=== PATIENT | male | born 1955 | race African-American/Black ===

== ENCOUNTER → 2017-09-21 | Outpatient (CLI) | payer OTHER ==
[2017-09-21] MEDS: IOHEXOL 300 MG/ML 100ML VIAL. IV (12:53)
[2017-09-21 12:54] LABS: ISTAT CREATININE 0.8 mg/dL (0.7-1.3)
== END | disposition home or self-care (01) ==
LOC: KCIC CT 12:08
DX: C34.91 Malignant neoplasm of unspecified part of right bronchus or lung (principal); J43.9 Emphysema, unspecified; I25.10 Atherosclerotic heart disease of native coronary artery without angina pectoris; R91.8 Other nonspecific abnormal finding of lung field; Z85.118 Personal history of other malignant neoplasm of bronchus and lung
CPT/HCPCS: 71260; 82565; Q9967

== ENCOUNTER → 2018-12-12 | Day surgery (SDC) | payer OTHER ==
[~2018-12-12] MED LIST: HYDROmorphone 2 MG/ML VIAL IV PRN; IV RINGERS,LACTATED 1000ML 1,000 ML IV SCH; LIDOCAINE 1% PF 2 ML VIAL. ID PRN; LISI-130 PO; METF500T16 PO; MORPHINE SULFATE 2 MG/ML VIAL. IV PRN; OLME1TAB35 PO; ONDANSETRON PF 4 MG/2 ML VIAL. IV PRN; PROCHLORPERAZINE 10 MG/2 ML VIAL. IV PRN; PROPOFOL 40 ML IV ONE; SITA100T PO; SITA1TAB11 PO; fentaNYL PF VIAL 100 MCG/2 ML VIAL IV PRN
[2018-12-12 10:45] VITALS: BP 150/98
--- NOTE | 2018-12-13 15:05 | PATHOLOGY ---
[facility] Accession Number: [id number] . 01 Material submitted: . PART A: colon - TRANSVERSE COLON POLYP. Modifiers: transverse PART B: colon - SIGMOID POLYP. Modifiers: sigmoid PART C: rectum - RECTAL POLYP . 01 Clinical history: . Pre-OP DX: Screening Post-OP DX: Polyps . 02 Diagnosis: A. Colon biopsies, transverse colon polyps: - Tubular adenomas (2). . B. Colon biopsies, sigmoid polyps: - Hyperplastic polyps. . C. Colorectal biopsies, rectal polyp: - Hyperplastic polyp. . (JP:mml; 12/13/2018) [facility]/12/13/2018 . 02 Comment: There is no high grade dysplasia or evidence of malignancy. . (JPM:mml; 12/13/2018) . 02 Electronically signed: . Trevin Wilson MD, Pathologist NPI- [id number] . 01 Gross description: . A. Received in formalin labeled "Carlos Daigle, transverse colon polyp," is a 0.8 x 0.6 x 0.6 cm polypoid piece of garibay soft tissue. The margin is inked and the tissue is sectioned perpendicular to the margin and submitted in its entirely in cassette A1 and A2. Additionally received in the same container is a single segment of garibay soft tissue measuring 0.4 cm in greatest dimension. The specimen is submitted entirely in cassette A3. . B. Received in formalin labeled "Pilo, Carlos, sigmoid polyp," are 7 segments of garibay soft tissue measuring 1.0 x 0.6 x 0.2 cm in aggregate dimensions and ranging from 0.2 to 0.5 cm in maximum dimension. The specimen is submitted entirely in cassette B1. . C. Received in formalin labeled "Pilo, Carlos, rectal polyp," are 2 segments of garibay soft tissue measuring 0.8 x 0.2 x 0.2 cm in aggregate dimensions and ranging from 0.6 to 0.2 cm in maximum dimension. The specimen is submitted entirely in cassette C1. (TSD; 12/12/2018) TOB/TOB . 02 Pathologist provided ICD-10: D12.3, D12.5, K62.1 . 02 CPT . 976847, 204142, 720598 Specimen Comment: A courtesy copy of this report has been sent to Specimen Comment: [phone], . Specimen Comment: Report sent to / DR TAYLOR Performed at: 01 [facility] [address] [place] [address] [address], [place] [id number] MD Lincoln Castano MD Phone: [phone] Performed at: [address] [facility] [address] [place], [place] [id number] MD Trevin Wilson MD Phone: [phone]
== END ==
LOC: SURG 08:52
PROVIDERS: ATTEND Internal Medicine Gastroenterology
DX: Z12.11 Encounter for screening for malignant neoplasm of colon (principal); D12.3 Benign neoplasm of transverse colon; K63.5 Polyp of colon; K62.1 Rectal polyp; K64.0 First degree hemorrhoids; J45.909 Unspecified asthma, uncomplicated; E11.9 Type 2 diabetes mellitus without complications; K44.9 Diaphragmatic hernia without obstruction or gangrene; Z88.0 Allergy status to penicillin; Z86.010 Personal history of colon polyps; Z85.118 Personal history of other malignant neoplasm of bronchus and lung; Z72.89 Other problems related to lifestyle; Z87.891 Personal history of nicotine dependence; Z79.84 Long term (current) use of oral hypoglycemic drugs
CPT/HCPCS: 45380; 45385; 88305; J2704

== ENCOUNTER 2019-04-04 00:28 | Emergency (ER) | payer OTHER ==
[~2019-04-04] VITALS: Ht 177.8 cm; Wt 98.0 kg
[~2019-04-04 00:28] MED LIST changes: -HYDROmorphone 2 MG/ML VIAL IV PRN; -IV RINGERS,LACTATED 1000ML 1,000 ML IV SCH; -LIDOCAINE 1% PF 2 ML VIAL. ID PRN; -MORPHINE SULFATE 2 MG/ML VIAL. IV PRN; -ONDANSETRON PF 4 MG/2 ML VIAL. IV PRN; -PROCHLORPERAZINE 10 MG/2 ML VIAL. IV PRN; -PROPOFOL 40 ML IV ONE; -fentaNYL PF VIAL 100 MCG/2 ML VIAL IV PRN
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
[2019-04-04 01:49] VITALS: BP 132/86
[2019-04-04] MEDS ORDERED: ORPH100T PO (02:01)
[2019-04-04] MEDS ORDERED: HYDR-3164 PO (02:01)
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
[2019-04-04] MEDS ORDERED: HYDROcodone/APAP 7.5/325MG 1 TAB TABLET PO ONE (02:30)
== END 2019-04-04 02:15 | disposition home or self-care (01) ==
LOC: ER 00:28
DX: S16.1XXA Strain of muscle, fascia and tendon at neck level, initial encounter (principal); S43.492A Other sprain of left shoulder joint, initial encounter; S20.212A Contusion of left front wall of thorax, initial encounter; Z88.0 Allergy status to penicillin; V43.52XA Car driver injured in collision with other type car in traffic accident, initial encounter; Y93.89 Activity, other specified; Y92.410 Unspecified street and highway as the place of occurrence of the external cause; Y99.8 Other external cause status
CPT/HCPCS: 71101; 72040; 73030; 99284

== ENCOUNTER → 2019-05-20 | Outpatient (CLI) | payer OTHER ==
[~2019-05-20] MED LIST changes: +HYDR-3164 PO; +ORPH100T PO
--- NOTE | 2019-05-21 11:16 | KCIC ---
CT CHEST WO CONTRAST History: History of malignant neoplasm of the upper lobe. Technique: Noncontrast CT of the chest was performed. Coronal and sagittal reconstructions were performed. Exposure: One or more of the following individualized dose reduction techniques were utilized for this examination: 1. Automated exposure control 2. Adjustment of the mA and/or kV according to patient size 3. Use of iterative reconstruction technique. Comparison: November 21, 2017 Findings: Chest: Postoperative changes left mediastinum. Postoperative changes left upper lobectomy. Right lower lobe peripheral reticulation, unchanged. Left lower lobe linear atelectasis or scarring. 2 mm right anterior pleural-based upper lobe nodule (series 2 image #24). 4 mm right minor fissure-based nodule (image #30), unchanged. New bilobed right lower lobe nodule measures 4 x 4 x 7 mm (image #36 series 2 and image 29 series 4). Upper abdomen: Bilateral adenomatous adrenal gland thickening. Bones: No pathologic osseous lesions. Right-sided rib deformity, likely postoperative. Impression: 1. New bilobed right lower lobe pulmonary nodule, indeterminate given history and concerning for malignancy. Recommend short-term interval follow-up. PET/CT may have limited utility given size. Biopsy could also be considered. 2. Bilateral adenomatous adrenal gland hypertrophy, unchanged. Electronically signed by: Franko Miguel DO (05/21/2019 11:13 AM) [facility]
== END | disposition home or self-care (01) ==
LOC: KCIC CT 08:11
PROVIDERS: ATTEND Family Medicine
DX: C34.10 Malignant neoplasm of upper lobe, unspecified bronchus or lung (principal); E27.8 Other specified disorders of adrenal gland; R91.8 Other nonspecific abnormal finding of lung field
CPT/HCPCS: 71250

== ENCOUNTER → 2020-06-08 | Outpatient (CLI) | payer OTHER | LOC: LAB 08:45 | PROVIDERS: ATTEND Internal Medicine Gastroenterology | DX: Z01.812 Encounter for preprocedural laboratory examination (principal); Z86.010 Personal history of colon polyps; Z20.828 Contact with and (suspected) exposure to other viral communicable diseases | CPT/HCPCS: U0003 ==

== ENCOUNTER → 2020-06-10 | Day surgery (SDC) | payer OTHER ==
[~2020-06-10] MED LIST changes: +IV RINGERS,LACTATED 1000ML 1,000 ML IV SCH; +LIDOCAINE 2% PF 5 ML VIAL. ONE; +PROPOFOL 10 MG/ML (20ML) VIAL. IV ONE
--- NOTE | 2020-06-10 12:25 | PREOP HP ---
DATE OF SERVICE: 06/10/2020 REQUESTING PHYSICIAN: Nitin Hylton MD PRIMARY CARE PHYSICIAN: Nitin Hylton MD REASON FOR PROCEDURE: History of colon polyps. HISTORY OF PRESENT ILLNESS: This is a 64-year-old gentleman who presents for colonoscopy. He has a history of colon polyps with his last colonoscopy in 2014. The risks and benefits of the procedure including bleeding, perforation, non-diagnosis and sedation were explained and he has agreed to proceed. MEDICATIONS: Propofol per anesthesia. ALLERGIES: No known drug allergies. MEDICATIONS: MAR reviewed. PAST MEDICAL HISTORY: Colon polyps. REVIEW OF SYSTEMS: A 13-point review of systems was done and is positive as per HPI and otherwise negative. PHYSICAL EXAMINATION: VITAL SIGNS: He is afebrile and his vital signs are stable. GENERAL: He is a well-developed, well-nourished gentleman, in no apparent distress. HEENT: Oropharynx is clear. CARDIOVASCULAR: S1, S2. LUNGS: Clear. ABDOMEN: Normoactive bowel sounds, soft, nontender, nondistended. EXTREMITIES: No edema. NEUROLOGIC: Awake, alert and oriented x 3. ASSESSMENT AND PLAN: History of polyps. The risks and benefits of the procedure including bleeding, perforation, non-diagnosis and sedation were explained and he has agreed to proceed. SHARMAINE ESCALANTE MD DR: ALEN/kevin JOB#: [id number] / [id number]
[2020-06-10 12:27] VITALS: BP 133/90
--- NOTE | 2020-06-15 09:30 | PATHOLOGY ---
[facility] Accession Number: [id number] . 01 Material submitted: . PART A: colon - DESCENDING COLON POLYP BIOPSY. Modifiers: descending PART B: colon - SIGMOID COLON POLYPS BIOPSY. Modifiers: sigmoid . 01 Clinical history: . HX POLYPS, SCREENING . 02 Diagnosis: A. Colon biopsy, descending colon polyp: - Tubular adenoma. . B. Colon biopsies, sigmoid colon polyps: - Tubular adenomas (2). - Hyperplastic polyps (multiple). (JPM:[facility] 06/14/2020) [facility] 06/14/2020 1627 Local . 02 Comment: There is no high-grade dysplasia or evidence of malignancy. (JPM:[facility] 06/14/2020) . 02 Electronically signed: . Trevin Wilson MD, Pathologist NPI- [id number] . 01 Gross description: . A. Received in formalin labeled "Pilo, Carlso, descending colon polyp BX" is a fragment of garibay-brown soft tissue measuring 0.5 x 0.4 x 0.1 cm. The specimen is submitted entirely in A1. . B. Received in formalin labeled "Pilo, Carlos, sigmoid colon polyps BX multiple polyps" are multiple garibay-brown soft tissue fragments measuring in aggregate 1.8 x 0.5 x 0.1 cm. The specimen is submitted entirely in B1. ([facility]; 06/12/2020) [facility] 06/12/2020 1118 Local . 02 Pathologist provided ICD-10: D12.4, D12.5, K63.5 . 02 CPT . 977243, 533624 Specimen Comment: A courtesy copy of this report has been sent to [phone] Specimen Comment: [phone] Specimen Comment: Report sent to / DR TAYLOR Performed at: 01 [facility] [address] [facility] [facility] [address], [place], [place] [id number] MD Gallo Guy MD Phone: [phone] Performed at: 02 [facility] [address] [place], [place] [id number] MD Trevin Wilson MD Phone: [phone]
== END | disposition home or self-care (01) ==
LOC: ENDOS 10:16
PROVIDERS: ATTEND Internal Medicine Gastroenterology
DX: Z12.11 Encounter for screening for malignant neoplasm of colon (principal); K64.0 First degree hemorrhoids; K63.5 Polyp of colon; K63.89 Other specified diseases of intestine; I10 Essential (primary) hypertension; K21.9 Gastro-esophageal reflux disease without esophagitis; E11.9 Type 2 diabetes mellitus without complications; Z86.010 Personal history of colon polyps; Z87.891 Personal history of nicotine dependence; Z79.82 Long term (current) use of aspirin; Z79.899 Other long term (current) drug therapy; Z79.84 Long term (current) use of oral hypoglycemic drugs; Z98.890 Other specified postprocedural states
CPT/HCPCS: 45380; J2704

== ENCOUNTER → 2021-06-27 | Day surgery (SDC) | payer MEDICARE, BC ==
[~2021-06-27] VITALS: Ht 172.7 cm; Wt 98.0 kg
[~2021-06-27] MED LIST changes: -IV RINGERS,LACTATED 1000ML 1,000 ML IV SCH; +LIDOCAINE 1%/EPI 1:100,000 20 ML VIAL. INJ ONE; +LIDOCAINE 1%/EPI 1:100,000 20 ML VIAL. ONE; -LIDOCAINE 2% PF 5 ML VIAL. ONE; +NEOMY/BACITR/POLYMYXIN OINT PACKET. TP ONE; -PROPOFOL 10 MG/ML (20ML) VIAL. IV ONE
[2021-06-27 09:05] VITALS: BP 168/85
--- NOTE | 2021-06-27 11:54 | PDOC4 ---
OPERATIVE NOTE Date: Date: Jun 27, 2021 Pre-Op Diagnosis: Left baptist mass Post-Op Diagnosis: Same Procedure Performed: Excision of left baptist mass, CPT 10064 x 1 unit Intermediate repair, CPT 45021 x 1 unit Surgeon: Taniya Caldwell MD Anesthesia Type: Local anesthesia with 1% lidocaine and 1:100,000 epinephrine Blood Loss: 5 mL Specimans Obtained: Left baptist lipomatous mass 0.9cm x 0.7cm Findings: See op note Complications: None Operative Note: Informed consent was obtained in the perioperative holding area. The risk of bleeding, infection, hematoma, seroma, contour irregularity, recurrence, need for revision procedures were discussed with the patient. He understood and desired to proceed. The patient was taken to the procedure room and laid on the table in the right lateral decubitus position. The mass was marked and photographed. Local anesthesia was used to anesthetize the area surrounding the lesion. A #15 scalpel was used to make a 1 inch incision overlying the lesion in the natural skin lines. The knife was used to dissect through to the deep dermis and into the subcutaneous tissues. Hemostats were then used to dissect the subcutaneous tissues surrounding the lesion until the capsule of the lesion was reached just above the fascia, in the subcutaneous tissues. A hemostat was used to grasp the mass and a second hemostat was used to gently dissect the lipomatous mass from the surrounding subcutaneous tissues and fascia, without margins. The lesion was sent to pathology for analysis. Hemostasis was achieved with cautery. The wound was irrigated with saline. The deep layers were closed with 5-0 Vicryl, including the base of the wound at the level of the fascia to decrease the space. 4-0 nylon was then used to close the skin using interrupted horizontal mattress sutures. The patient tolerated the procedure well. TANIYA CALDWELL MD Jun 27, 2021 11:54
== END | disposition home or self-care (01) ==
LOC: SURG 08:54
PROVIDERS: ATTEND Plastic Surgery
DX: D17.0 Benign lipomatous neoplasm of skin and subcutaneous tissue of head, face and neck (principal); I10 Essential (primary) hypertension; J45.909 Unspecified asthma, uncomplicated; E11.9 Type 2 diabetes mellitus without complications; Z79.84 Long term (current) use of oral hypoglycemic drugs; Z79.899 Other long term (current) drug therapy; Z72.89 Other problems related to lifestyle; Z98.890 Other specified postprocedural states
CPT/HCPCS: 12051; 21011; 88304; J3490

== ENCOUNTER → 2021-08-11 | Day surgery (SDC) | payer MEDICARE, BC ==
[~2021-08-11] VITALS: Ht 172.7 cm; Wt 100.0 kg
[~2021-08-11] MED LIST changes: +HYDROmorphone 2 MG/ML INJ. IVP PRN; +IV RINGERS,LACTATED 1000ML 1,000 ML IV SCH; -LIDOCAINE 1%/EPI 1:100,000 20 ML VIAL. INJ ONE; -LIDOCAINE 1%/EPI 1:100,000 20 ML VIAL. ONE; +LIDOCAINE 2% PF 5 ML VIAL. ONE; +MORPHINE SULFATE 2 MG/ML INJ. IVP PRN; -NEOMY/BACITR/POLYMYXIN OINT PACKET. TP ONE; +PROCHLORPERAZINE 10 MG/2 ML VIAL. IVP PRN; +PROPOFOL 10 MG/ML (20ML) VIAL. IV ONE; +fentaNYL PF VIAL 100 MCG/2 ML VIAL IVP PRN
[2021-08-11 09:13] VITALS: BP 173/98
--- NOTE | 2021-08-11 09:37 | PREOP HP ---
DATE OF SERVICE: 08/11/2021 PREOPERATIVE HISTORY AND PHYSICAL DATE OF PROCEDURE: 11/08/2021. REQUESTING PHYSICIAN: Dr. Nitin Hylton. PRIMARY CARE PHYSICIAN: Dr. Nitin Hylton. REASON FOR PROCEDURE: History of polyps. HISTORY OF PRESENT ILLNESS: This is a 65-year-old gentleman who presents today for followup of prior history of colon polyps. He has had a colonoscopy in 2019 and 2019 that demonstrated multiple tubular adenomas. ALLERGIES: No known drug allergies. PAST MEDICAL HISTORY: 1. Colon polyps. 2. Diabetes. 3. Hypertension. 4. Asthma. FAMILY MEDICAL HISTORY: No colon cancer. SOCIAL HISTORY: He is a former smoker. MEDICATIONS: MAR reviewed. REVIEW OF SYSTEMS: A 13-point review of systems was done and is positive as per HPI and otherwise negative. PHYSICAL EXAMINATION: VITAL SIGNS: Afebrile and his vital signs are stable. GENERAL: He is a well-developed, well-nourished -[place] gentleman in no apparent distress. HEENT: His oropharynx is clear. CARDIOVASCULAR: S1, S2. LUNGS: Clear. ABDOMEN: Normoactive bowel sounds, soft, nontender, nondistended. EXTREMITIES: No edema. NEUROLOGIC: Awake, alert and oriented x 3. ASSESSMENT AND PLAN: History of colon polyps. The risks and benefits of the procedure including bleeding, perforation, nondiagnosis and sedation were explained. He has agreed to proceed. ALEN/RENETTA GARRETT: ALEN/kevin TID: [id number]
[2021-08-11 10:13] VITALS: BP 147/81
--- NOTE | 2021-08-12 16:10 | PATHOLOGY ---
[facility] Accession Number: [id number] . 01 Material submitted: . colon - ASCENDING COLON POLYPS X2. Modifiers: ascending . 01 Clinical history: . FAMILY HISTORY OF POLYPS COLONOSCOPY . 02 Diagnosis: Segments of colonic mucosa, ascending colon polyps x 2: - Tubular adenomas. - Vegetable material. LBQ 08/12/2021 1008 Local . 02 Comment: There is no high grade dysplasia or evidence of malignancy. (JPM/db; 08/12/2021) . 02 Electronically signed: . Trevin Wilson MD, Pathologist NPI- [id number] . 01 Gross description: . The specimen is received in formalin, labeled "Pilo, Carlos, ascending colon polyps x2". Received are multiple segments of pale garibay to light brown tissue measuring 1.5 x 1.0 x 0.1 cm in aggregate dimensions and admixed with vegetable material. The specimen is filtered and entirely submitted in cassette A1. ([facility]; 08/11/2021) NRI/NRI 08/11/2021 1950 Local . 02 Pathologist provided ICD-10: D12.2 . 02 CPT . 868337 Specimen Comment: A courtesy copy of this report has been sent to [phone] Specimen Comment: Report sent to Performed at: 01 [facility] [address] [facility] [address], [place], [place] [id number] MD Gallo Guy MD Phone: [phone] Performed at: 02 [facility] [address] [place], [place] [id number] MD Trevin Wilson MD Phone: [phone]
== END | disposition home or self-care (01) ==
LOC: SURG 08:35
PROVIDERS: ATTEND Internal Medicine Gastroenterology
DX: Z08 Encounter for follow-up examination after completed treatment for malignant neoplasm (principal); K64.0 First degree hemorrhoids; D12.2 Benign neoplasm of ascending colon; K63.89 Other specified diseases of intestine; I10 Essential (primary) hypertension; E11.9 Type 2 diabetes mellitus without complications; J45.909 Unspecified asthma, uncomplicated; Z86.010 Personal history of colon polyps; Z87.891 Personal history of nicotine dependence; Z79.899 Other long term (current) drug therapy; Z79.84 Long term (current) use of oral hypoglycemic drugs; Z98.890 Other specified postprocedural states; Z72.89 Other problems related to lifestyle
CPT/HCPCS: 45385; 88305; J2704; 45382; 45384